=== PATIENT | female | born 1985 | race Caucasian/White ===

== ENCOUNTER 2024-08-22 00:58 | Emergency (ER) | payer MEDICAID, OTHER ==
[~2024-08-22] VITALS: Ht 165.1 cm; Wt 52.2 kg
[2024-08-22 01:07] VITALS: BP 116/82; TEMP 98.5; O2SAT 99
[2024-08-22] MEDS ORDERED: IBUP-1957 PO (01:21)
[2024-08-22] MEDS ORDERED: AMOX-430 PO (01:21)
[2024-08-22] MEDS ORDERED: AMOX/CLAVULANATE 875 MG TABLET ONE (01:23)
[2024-08-22] MEDS ORDERED: IBUPROFEN 400 MG TABLET ONE (01:23)
[2024-08-22] MEDS: AMOX/CLAVULANATE 875 MG TABLET PO ONE (01:27)
[2024-08-22] MEDS: IBUPROFEN 400 MG TABLET PO ONE (01:27)
== END 2024-08-22 01:28 | disposition home or self-care (01) ==
LOC: ER 01:04
DX: J02.0 Streptococcal pharyngitis (principal); Z79.1 Long term (current) use of non-steroidal anti-inflammatories (NSAID)